=== PATIENT | male | born 1990 | race Two or more races ===

== ENCOUNTER 2021-12-24 14:01 | Emergency (ER) | payer OTHER ==
[~2021-12-24] VITALS: Ht 175.3 cm; Wt 90.7 kg
[2021-12-24 14:12] VITALS: BP 117/85
--- NOTE | 2021-12-24 14:30 | NUR ---
SEEN AND EXAMINED BY DR GIRON
[2021-12-24] MEDS ORDERED: AMLO2.5T4 PO (14:32)
[2021-12-24] MEDS ORDERED: LOVA20TA2 PO (14:32)
--- NOTE | 2021-12-24 14:41 | NUR ---
Patient discharged to home in stable condition. Written and verbal after care instructions given. Patient verbalizes understanding of instruction.
== END 2021-12-24 14:42 | disposition home or self-care (01) ==
LOC: ER 14:04
DX: Z76.0 Encounter for issue of repeat prescription (principal); I10 Essential (primary) hypertension; E78.5 Hyperlipidemia, unspecified; J45.909 Unspecified asthma, uncomplicated; Z79.810 Long term (current) use of selective estrogen receptor modulators (SERMs); Z79.899 Other long term (current) drug therapy